=== PATIENT | male | born 1975 | race Two or more races ===

== ENCOUNTER 2018-01-04 12:21 | Emergency (ER) | payer OTHER ==
[~2018-01-04] VITALS: Ht 177.8 cm; Wt 158.8 kg
[2018-01-04 12:32] VITALS: BP 169/95
[2018-01-04] MEDS ORDERED: Ketorolac 30mg Inj IV ONE (12:45)
[2018-01-04 13:12] LABS: BASOPHILS % (AUTO) 0.4 % (0.0-2.0); EOSINOPHILS % (AUTO) 2.6 % (0.0-3.0); HEMOGLOBIN 14.8 G/DL (14.2-18.0); LYMPHOCYTES % (AUTO) 29.2 % (20.0-45.0); MEAN CORPUSCULAR VOLUME 85 FL (80-99); MONOCYTES % (AUTO) 8.9 % (1.0-10.0); NEUTROPHILS % (AUTO) 58.9 % (45.0-75.0); PLATELET COUNT 253 K/UL (150-450); RED BLOOD COUNT 5.41 M/UL (4.70-6.10); RED CELL DISTRIBUTION WIDTH 12.1 % (11.6-14.8); WHITE BLOOD COUNT 9.1 K/UL (4.8-10.8)
[2018-01-04 13:21] LABS: ANION GAP 8 mmol/L (5-15); BLOOD UREA NITROGEN 14 mg/dL (7-18); CARBON DIOXIDE 27 MMOL/L (21-32); CHLORIDE 104 MMOL/L (98-107); CREATININE 1.1 MG/DL (0.55-1.30); POTASSIUM 3.9 MMOL/L (3.5-5.1); SODIUM 139 MMOL/L (136-145)
[2018-01-04 13:25] LABS: ALANINE AMINOTRANSFERASE 55 U/L (12-78); ALBUMIN 3.7 G/DL (3.4-5.0); ALBUMIN/GLOBULIN RATIO 0.9 (1.0-2.7); ALKALINE PHOSPHATASE 108 U/L (46-116); ASPARTATE AMINO TRANSFERASE 26 U/L (15-37); BILIRUBIN,TOTAL 0.5 MG/DL (0.2-1.0)
--- NOTE | 2018-01-04 13:49 | Emergency Room Report ---
History of Present Illness General Chief Complaint: Pain Source: Patient Present Illness HPI 42-year-old male presents to the emergency department complaining of right- sided abdominal pain 1.5 weeks that is exacerbated with leaning forward and when he coughs. pt. reports pain is 9/10 in severity when coughing. pt. does not recall strenuous activities. He reports tenderness to palpation as well. denies hx of DM, ETOH abuse, GERD or Pancreatitis. denies excessive nsaid use. Patient ports nausea denies vomiting. Patient denies changes in location of his pain. Denies fevers or chills. denies black tarry stools. Denies fevers or chills. Denies recent travel. Does not recall if pain is worse after eating. No relieving factors. Allergies: Coded Allergies: No Known Allergies (Unverified , 01/04/18) Patient History Past Medical History: see triage record Past Surgical History: none Pertinent Family History: none Reviewed Nursing Documentation: PMH: Agreed; PSxH: Agreed Nursing Documentation-PMH Past Medical History: No History, Except For Hx Hypertension: Yes Review of Systems All Other Systems: negative except mentioned in HPI Physical Exam Vital Signs Date Time Temp Pulse Resp B/P (MAP) Pulse Ox O2 Delivery O2 Flow Rate FiO2 01/04/18 12:27 97.6 72 14 169/95 95 Room Air 97.5 Sp02 EP Interpretation: reviewed, normal General Appearance: no apparent distress, alert, GCS 15, non-toxic Head: normocephalic, atraumatic ENT: hearing grossly normal, normal voice Neck: full range of motion Respiratory: chest non-tender, lungs clear, normal breath sounds, speaking full sentences Cardiovascular #1: regular rate, rhythm Gastrointestinal: normal bowel sounds, soft, no organomegaly, no peritonitis, non-distended, no guarding, tenderness - superficial ttp to the right anterio- lateral upper quadrant area. no mcburney's point ttp, no palpable liver positive murphys, however very tender in general. Rectal: deferred Genitourinary: normal inspection, no CVA tenderness Musculoskeletal: back normal, gait/station normal, normal range of motion, non- tender Neurologic: alert, oriented x3, responsive, motor strength/tone normal, sensory intact, normal gait, speech normal, grossly normal Psychiatric: judgement/insight normal Skin: normal color, no rash, warm/dry, well hydrated Medical Decision Making PA Attestation Dr. Castelan is my supervising Physician whom patient management has been discussed with. Diagnostic Impression: Primary Impression: Muscle strain Additional Impression: Abdominal pain Qualified Codes: R10.11 - Right upper quadrant pain ER Course 42-year-old male presents to the emergency department complaining of right- sided abdominal pain 1.5 weeks that is exacerbated with leaning forward/to the right side and when he coughs. pt. reports pain is 9/10 in severity when coughing. pt. does not recall strenuous activities. He reports tenderness to palpation as well. denies hx of DM, ETOH abuse, GERD or Pancreatitis. denies excessive NSAID use. Patient ports nausea denies vomiting. Patient denies changes in location of his pain. Denies fevers or chills. Denies hematuria, dysuria, migration of pain denies black tarry stools. Denies fevers or chills. Denies recent travel. Does not recall if pain is worse after eating. No relieving factors. Ddx considered but are not limited to Diverticulitis, acute appy, diarrhea,UC, PUD, GE, pancreatitis, gallstone, Hepatitis, Renal stone just to name a few. Vital signs: are WNL, pt. is afebrile H&PE are most consistent with TTP to the right anterio-lateral upper quadrant, no CVA tenderness, no mcburny's point ttp. pt. is other figueroa non toxic in appearance and does not appear to be in any distress. ORDERS: -CBC, CMP, lipase all WNL/unremarkable - enzymes normal, LFT's normal no indication of biliary obstruction or pancreatitis ED INTERVENTIONS: -Toradol -Zofran 4mg -I do not identify an emergent condition at this time. With current presentation , progressive onset, and rather superficial ttp on exam muscle strain is most consistent, no evidence of acute abdomen, normal labs. pt. is stable for close outpatient follow up and conservative treatment. D/w pt. to return promptly to ED with worsening or new symptoms.- Pt. verbalizes' understanding and agreement with proposed treatment plan.proposed treatment plan. DISCHARGE: At this time pt. is stable for d/c to home. Will provide printed patient care instructions, and any necessary prescriptions. Care plan and follow up instructions have been discussed with the patient prior to discharge. Labs Test 01/04/18 12:55 White Blood Count 9.1 K/UL (4.8-10.8) Red Blood Count 5.41 M/UL (4.70-6.10) Hemoglobin 14.8 G/DL (14.2-18.0) Hematocrit 46.0 % (42.0-52.0) Mean Corpuscular Volume 85 FL (80-99) Mean Corpuscular Hemoglobin 27.3 PG (27.0-31.0) Mean Corpuscular Hemoglobin Concent 32.1 G/DL (32.0-36.0) Red Cell Distribution Width 12.1 % (11.6-14.8) Platelet Count 253 K/UL (150-450) Mean Platelet Volume 7.2 FL (6.5-10.1) Neutrophils (%) (Auto) 58.9 % (45.0-75.0) Lymphocytes (%) (Auto) 29.2 % (20.0-45.0) Monocytes (%) (Auto) 8.9 % (1.0-10.0) Eosinophils (%) (Auto) 2.6 % (0.0-3.0) Basophils (%) (Auto) 0.4 % (0.0-2.0) Sodium Level 139 MMOL/L (136-145) Potassium Level 3.9 MMOL/L (3.5-5.1) Chloride Level 104 MMOL/L (98-107) Carbon Dioxide Level 27 MMOL/L (21-32) Anion Gap 8 mmol/L (5-15) Blood Urea Nitrogen 14 mg/dL (7-18) Creatinine 1.1 MG/DL (0.55-1.30) Estimat Glomerular Filtration Rate > 60 mL/min (>60) Glucose Level 105 MG/DL (74-106) Calcium Level 9.0 MG/DL (8.5-10.1) Total Bilirubin 0.5 MG/DL (0.2-1.0) Aspartate Amino Transf (AST/SGOT) 26 U/L (15-37) Alanine Aminotransferase (ALT/SGPT) 55 U/L (12-78) Alkaline Phosphatase 108 U/L (46-116) Total Protein 7.7 G/DL (6.4-8.2) Albumin 3.7 G/DL (3.4-5.0) Globulin 4.0 g/dL Albumin/Globulin Ratio 0.9 (1.0-2.7) Lipase 170 U/L (73-393) Last Vital Signs Date Time Temp Pulse Resp B/P (MAP) Pulse Ox O2 Delivery O2 Flow Rate FiO2 01/04/18 12:52 97.5 01/04/18 12:32 72 14 169/95 95 Room Air Disposition: HOME, SELF-CARE Condition: Stable Scripts Codeine/Promethazine Hcl* (PROMETHAZINE-CODEINE SYRUP*) 118 Ml Syrup 5 ML ORAL Q6H PRN for For Cough, #120 ML 0 Refills Prov: Jessica Mejia 01/04/18 Ranitidine Hcl* (ZANTAC*) 150 Mg Tablet 150 MG ORAL TWICE A DAY for 7 Days, #14 TAB Prov: Jessica Mejia 01/04/18 Ibuprofen* (MOTRIN*) 600 Mg Tablet 600 MG ORAL THREE TIMES A DAY, #30 TAB 0 Refills Prov: Jessica Mejia 01/04/18 Patient Instructions: Abdominal Pain, Adult, [id number], Muscle Strain, Easy- to-Read Additional Instructions: Take medications as directed. Follow up with a Primary Care Provider in 3-5 days, even if your symptoms have resolved. --Please review list of primary care clinics, if you do not already have a primary care provider Return sooner to ED if new symptoms occur, or current symptoms become worse. - Please note that this Emergency Department Report was dictated using [employer] ?vallez filter operator technology software, occasionally this can lead to erroneous entry secondary to interpretation by the dictation equipment. Jessica Mejia Jan 04, 2018 13:49
[2018-01-04] MEDS ORDERED: IBUPROFEN600 MG ORAL (13:50)
[2018-01-04] MEDS ORDERED: ZANTAC150 MG ORAL (13:50)
[2018-01-04] MEDS ORDERED: PROMETHAZINE-C118 M1 ORAL (14:01)
[2018-01-04 14:03] VITALS: BP 169/95
== END 2018-01-04 13:58 | disposition home or self-care (01) ==
LOC: EMR 13:50
DX: S39.011A Strain of muscle, fascia and tendon of abdomen, initial encounter (principal); X58.XXXA Exposure to other specified factors, initial encounter; Y93.9 Activity, unspecified; Y92.89 Other specified places as the place of occurrence of the external cause; I10 Essential (primary) hypertension
CPT/HCPCS: 36415; 80053; 83690; 85025; 96374; 96375; 99284; J1885; J2405